=== PATIENT | male | born 1960 | race Two or more races ===

== ENCOUNTER 2017-09-20 22:35 | Emergency (ER) | payer SELFPAY ==
[~2017-09-20] VITALS: Ht 172.7 cm; Wt 63.0 kg
[2017-09-20 22:44] VITALS: Ht 172.7 cm; Wt 63.0 kg
[2017-09-20 23:06] VITALS: BP 128/78
== END 2017-09-20 23:06 | disposition home or self-care (01) ==
LOC: ED 22:35
DX: Z00.00 Encounter for general adult medical examination without abnormal findings (principal); Z45.2 Encounter for adjustment and management of vascular access device